=== PATIENT | male | born 1960 | race African-American/Black ===

== ENCOUNTER 2025-05-09 15:14 | Outpatient (AMB) | payer OTHER, MEDICARE, SELFPAY ==
--- NOTE | 2025-05-09 15:30 | MHC.OFFVIS ---
Intake Visit Reasons: 6 Months Allergies No Known Allergies Allergy (Verified 05/09/25 08:04) HPI Comments Details: 65 years old man with dementia probably of Alzheimer type and REM sleep behavior disorder. He is presenting with medication management needs for cognitive impairment and sleep disorder. The cognitive impairment involves issues with memory, which the patient reports have shown some improvement with the continued use of Mamantine. The sleep disorder includes symptoms of insomnia, for which Clonazepam has been prescribed as a nightly medication to facilitate improved sleep quality. Both conditions are chronic in nature, and current treatment regimens appear to support symptom management. [facility] Medical History (Updated 05/09/25 @ 15:32 by Selin Merino MD) Alzheimer dementia MCI (mild cognitive impairment) REM sleep behavior disorder Encephalopathy Review of Systems Const Details: - Neurologic: Reports improvement in memory. - Psychiatric: Reports better sleep. Physical Exam Neuro Other: Mental Status: Alert and oriented to person, place, and time. Normal attention. Normal spontaneous speech, fluency, and comprehension. Cranial Nerves: CN II: Visual kapadia full to confrontation, visual acuity intact. CN III, IV, : Pupils equal, round, reactive to light and accommodation. Extraocular movements are normal. CN V: Facial sensation is normal. CN VII: Facial movements symmetrical. CN VIII: Hearing intact to bedside conversation is normal. CN IX, X: Palate elevates symmetrically. CN XI: Shoulder shrug and head turn symmetrical. CN XII: Tongue midline without atrophy or fasciculations. Extrapyramidal: Full facial expressions and blinking. No rigidity. Movements are appropriate with no tremor or abnormality. Speech: Normal; no dysarthria or tremor. Assessment & Plan Assessment & Plan (1) Alzheimer dementia: Comment: EEG at [facility] in Jul 2024: Slowing CT brain WO at [facility] in Apr 2024: Mild atroph MRI brain WO at [facility] in Apr 2024: Mild atrophy and mild MVD CTA brain and neck at [facility] in Apr 2024: No sig stenosis. Code(s): G30.9 - Alzheimer's disease, unspecified; F02.80 - Dementia in other diseases classified elsewhere, unspecified severity, without behavioral disturbance, psychotic disturbance, mood disturbance, and anxiety Category: Medical Qualifiers: Alzheimer's disease onset: late onset Dementia severity: moderate Dementia behavioral or psychological symptom: without behavioral, psychotic, or mood disturbance or anxiety Qualified Code(s): G30.1 - Alzheimer's disease with late onset; F02.B0 - Dementia in other diseases classified elsewhere, moderate, without behavioral disturbance, psychotic disturbance, mood disturbance, and anxiety (2) REM sleep behavior disorder: Code(s): G47.52 - REM sleep behavior disorder Category: Medical Plan During this visit, I discussed the patient's ongoing cognitive impairment and sleep disorder management plans. Mamantine dosage will be increased to enhance cognitive function based on the current positive response to treatment. Doubling the 5 mg dosage will aim to maximize cognitive improvement. For sleep management, we agreed to continue Clonazepam at the current dose taken nightly, as it remains effective in mitigating insomnia symptoms. We reviewed the benefits, including the anticipated further cognitive improvement and stabilized sleep patterns, and there were no additional concerns raised regarding the treatment plan. Medications: New memantine 10 mg PO BID 180 tabs 1RF clonazepam 0.5 mg PO BEDTIME 90 tabs 1RF Coding Level of Care Code Est Pt Level 4 (55273) Diagnoses Moderate late onset Alzheimer's dementia without behavioral disturbance, psychotic disturbance, mood disturbance, or anxiety G30.1; F02.B0 Alzheimer's disease onset: late onset Dementia severity: moderate Dementia behavioral or psychological symptom: without behavioral, psychotic, or mood disturbance or anxiety REM sleep behavior disorder G47.52
--- OUTSIDE RECORDS SUMMARY | 2025-05-09 17:37 | XMS_ITS | Encounter Summary ---
Author Organization [facility], Address [address] [place] [address] Phone Care Team Providers Care [employer] Officer Name Role Phone Bonita Tinsley Primary Care Provider [phone] Encounter Details Date Type Department Care Team ([facility] st Contact Info) Description 06/08/2024 Documentation Only [facility], [address] [place] [address] Sheri Shafer [address] [place] [address] Social History Tobacco Use Types Packs/Day Years Used Date Smoking Tobacco: Never Alcohol Use Standard Drinks/Week Comments No 0 (1 standard drink = 0.6 oz pur e alcohol) Sex and Gender Information Value Date Recorded Sex Assigned at Not on file Legal Sex Male 4:37 PM EST Gender Identity Not on file Sexual Orientation Not on file documented as of this encounter Plan of Treatment Not on file documented as of this encounter Visit Diagnoses Not on filedocumented in this encounter Care Teams [employer] Relationship Specialty Start Date End Date Bonita Tinsley PA [address] [facility] [address] [place], [place] PCP - General Physician Tra[employer] Rod Assembler 11/15/21 documented as of this encounter
--- OUTSIDE RECORDS SUMMARY | 2025-05-09 17:37 | XMS_ITS | Encounter Summary ---
Author Organization [facility], Address [address] [place] [address] Phone Care Team Providers Care Chip Frier Name Role Phone Bonita Tinsley Primary Care Provider [phone] Encounter Details Date Type Department Care Team (Late st Contact Info) Description 03/02/2024 Office Communication [facility], - Viridiana Pereira [address] [facility] [address] [place] [phone] Heri Kaiser MD [address] [place] [address] [facility] [place] [phone] Social History Tobacco Use Types Packs/Day Years [...] on filedocumented in this encounter Care Teams Chip Frier Relationship Specialty Start Date End Date Bonita Tinsley PA [address] PCP - General Physician Sales Estimator 11/15/21 documented as of this encounter
--- OUTSIDE RECORDS SUMMARY | 2025-05-09 17:37 | XMS_ITS | Data Portability ---
Author Organization [facility], Main Office Address [address] [facility] [address] [place] [address] Care Team Providers Care Pot Pusher Name Role Phone JAY DE LA CRUZ Primary Care Provider OBDULIO REYNA Referring Provider [facility] Lead Developer [phone] CHANDRA MACIEL Lead Developer XAVIER ARAMBULA Mental Measurements Teacher CHANDRA FORDE Lead Developer NORMA POLANCO Curbing Stonecutter Assessment No assessment recorded. Plan of Treatment Reminders Order Date Submit Date Provider Last Modified By Organization Details Last Modified Time Details Appointments BILLING ONLY 2024 09:15A M MECHELLE SCHEDULE Not available Not available Not available Lab hemoglobi n A1C, fingersti ck 2024 025 ANDERSON In-Office Order, Internal Use Only DO Not Attach Compendium DO Not Attach Compendium, Do Not Delete/merge, [id number] 01/04/2025 10:43:25 CMP, serum or plasma 2024 025 ANDERSON [facility] (Centralized Electronic Ordering - All Locations), Patient Can Go To The Location Of Their Choice, [id number] 01/04/2025 11:11:55 lipid panel, serum 2024 025 ANDERSON [facility] (Centralized Electronic Ordering - All Locations), Patient Can Go To The Location Of Their Choice, [id number] 01/04/2025 11:12:38 Referral None recorded. Procedures None recorded. Surgeries None recorded. Imaging None recorded. Medication Orders None recorded. Patient TargetsNo targets recorded. Patient Instructions Encounter Date Encounter Id Patient Instructions Last Modified By Organization Details Last Modified Time 01/04/2025 [id number] diarrhea: care instructions [email or web address] Not available 01/04/2025 11:11:49 medicines to avoid with kidney disease: care instructions Not available 01/04/2025 11:11:49 high cholesterol: care instructions Not available 01/04/2025 11:12:36 Medications (OTC, herbal therapies, supplements) reviewed and reconciled with patient and or caregiver, including potential side effects, drug interactions, instructions, and the consequences of not taking medication. Reviewed potential barriers to medication adherence, such as side effects from medication or cost of medication. [email or web address] Not available 01/04/2025 10:27:07 Reason for Referral None Reported. Results Created Date Observation Date Name Description Value Unit Range Abnormal Flag Note LastModifiedBy Organization Detail LastModifiedTime 01/05/20 25 01/04/2025 hemog lobin A1C, finge rstic k A1C 5.9 % 4-6 normal Not Available In-Office Order Internal Use Only DO Not Attach Compendium DO Not Attach Compendium, Do Not Delete/merge, [id number] 01/04/2025 10:28:51 Result Notes None recorded. Problems Name Problem SNOMED Code Status Onset Date Resolution Date Notes Provider Name and Address Organization Details Recorded Time Hyperten sive disorder [id number] Completed 01/03/2020 Cara Tinsley PA-C [address] [address], [place], [address] , [facility] 0 11:07:59 Type 2 diabetes mellitus 62711925 Completed 01/03/[address] Cara Tinsley PA-C [address] [facility] [address], [place], [address] , [facility] 0 11:08:31 Administ ration of diphther ia and tetanus vaccine Completed 200702/22/2014 RESOLVED DATE: 03/26/20 08; RECORDED 03/26/20 08 10:36AM BY MECHELLE POLANCO, HISTORIC AL SUMMARY Jacqui garcias, [facility] 6 10:44:46 Administ ration of diphther ia and tetanus vaccine Completed 200703/14/2014 RESOLVED DATE: 03/26/20 08; RECORDED 03/26/20 08 10:36AM BY MECHELLE POLANCO, HISTORIC AL SUMMARY Jacqui garcias, [facility] 6 10:44:46 Influenz a vaccine needed [id number] 06 Completed 201002/22/2014 RECORDED 05/07/20 11 4:43PM BY GISELE MENA I, OFFICE VISIT Jacqui garcias [facility] 6 10:44:46 Influenz a vaccine needed 84166137230 06 Completed 201003/14/2014 RECORDED 05/07/20 11 4:43PM BY GISELE MENA I, OFFICE VISIT Jacqui garcias, [facility] 6 10:44:46 Renal function tests outside referenc e range 430449695 Completed 201302/22/2014 IMPRESSI ON: RECENT LABS REVEAL ELEVATED BUN AND CREATINI NE. PT DENIES TAKING ANY NSAIDS. WILL REPEAT LABS AND F/U VIA PHONE WITH RESULTS WHEN AVAIL. I HAVE RECC HE SCHED A ROUTINE APPT WITH PCP IN THE NEXT 4-6 WKS, HOWEVER, HE IS LONG OVERDUE AND WE NEED TO WORK ON MAINTENA NCE.; RECORDED 08/18/19 14 2:14PM BY GISELE MENA I, ANNOTATI ON/ADDEN DUM Jacqui garcias, [facility] 6 10:44:46 Renal function tests outside referenc e range 265921643 Completed 201303/14/2014 IMPRESSI ON: RECENT LABS REVEAL ELEVATED BUN AND CREATINI NE. PT DENIES TAKING ANY NSAIDS. WILL REPEAT LABS AND F/U VIA PHONE WITH RESULTS WHEN AVAIL. I HAVE RECC HE SCHED A ROUTINE APPT WITH PCP IN THE NEXT 4-6 WKS, HOWEVER, HE IS LONG OVERDUE AND WE NEED TO WORK ON MAINTENA NCE.; RECORDED 08/18/19 14 2:14PM BY GISELE MENA I, ANNOTATI ON/ADDEN DUM Jacqui garcias [facility] 6 10:44:46 Adult health examinat ion Completed 201306/24/2015 RECORDED 10/29/19 14 2:49PM BY GISELE MENA I, OFFICE VISIT Jacqui garcias [facility] 6 10:44:46 Laborato ry procedur e performe d [id number] Completed 201302/22/2014 RECORDED 10/29/19 14 8:57AM BY GISELE MENA I, ANNOTATI ON/ADDEN DUM Jacqui garcias, [facility] 6 10:44:46 Type 2 diabetes mellitus without complica tion 453846342 Completed 201301/17/2017 MIRELAI ON: WE REVIEWED LIFESTYL E CHANGES HE CAN MAKE TO GET HIS SUGARS UNDER BETTER CONTROL. HE HAS BEEN C/W THE METFORMI N AND GLYBURID E AND TOLERATI NG BOTH WELL.; RECORDED 12/01/19 14 7:55AM BY GISELE MENA I, KELSEY TIREJI Tinsley PA-C [address] [address], [place], [address] , [facility] 7 13:17:58 Adult health examinat ion Completed 201303/14/2014 RECORDED 12/30/19 14 10:14AM BY SHARRI NUÑEZ MA, ANNOTATI ON/ADDEN DUM Jacqui garcias [facility] 6 10:44:46 Hyperlip idemia 49406994 Active 2013 Not Available [facility] 3 19:00:12 Patient status finding [id number] Completed 201306/24/2015 RECORDED 01/26/20 14 3:02PM BY ABHILASH SHEPPARD, OFFICE VISIT Jacqui garcias, [facility] 6 10:44:46 Chronic kidney disease stage 2 398221663 Completed 201306/21/2020 Jay De La Cruz MD [address] [facility] [address], [place], [address] , [facility] 4 09:13:21 Renal disorder due to type 2 diabetes mellitus 528324416 Active 2013 Not Available [facility] 3 19:00:12 Keratoco nus 03193336 Active 2013 Not Available [facility] 3 19:00:12 Laborato ry procedur e performe d 277622887 Completed 201306/24/2015 RECORDED 01/26/20 14 3:02PM BY ABHILASH SHEPPARD, OFFICE VISIT Jacqui garcias, [facility] 6 10:44:46 Pre-surg lakia evaluati on Completed 201303/14/2014 RECORDED 01/26/20 14 3:02PM BY ABHILASH SHEPPARD, ANNOTATI ON/ADDEN DUM Jacqui garcias, [facility] 6 10:44:46 Conducti on disorder of the heart 17113930 Active 2013 Not Available [facility] 3 19:00:12 Chronic kidney disease stage 2 086601450 Completed 201306/09/2024 Removal Reason: worsenin g kidney disease Jay De La Cruz MD [address] [facility] [address], [place], [address] , [facility] 4 09:13:21 Tubular adenomat ous polyp of colon 354938285 Active 2015 Not Available [facility] 3 19:00:12 Microalb uminuria 471685310 Active 2016 Not Available [facility] 3 19:00:12 Hemorrha ge of left vitreous body 40672374665 9105 Active 2018 Not Available [facility] 3 19:00:12 Retinopa thy due to type 2 diabetes mellitus 880007499 Active 2018 Not Available [facility] 3 19:00:12 Neovascu lar glaucoma of left eye 19581482828 938580 Active 2018 Not Available [facility] 3 19:00:12 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 mellitus 05376040595 101 Active 2018 Not Available [facility] 3 19:00:12 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 836359500 Active 2018 Justine Mcdonough MA null, [facility] 4 10:21:46 Noncompl iance with medicati on regimen 867033243 Active 2018 Not Available [facility] 3 19:00:12 Anemia of chronic disease 074313308 Active 2018 Not Available [facility] 3 19:00:12 Acute kidney injury 30183357 Completed 201910/01/2023 Gonzalo Blanchard MD [address], [place], [address] , [facility] 4 08:18:13 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 Not Available [facility] 3 19:00:12 Renal osteodys trophy 74744008 Completed 202110/02/2021 CHANCE Preston, [facility] 4 10:02:00 Hyperuri cemia 73763107 Active 2021 Not Available [facility] 3 19:00:12 Primary erectile dysfunct ion 639943270 Active 2022 Cara Tinsley PA-C [address], [place], [address] , [facility] 3 16:02:31 Mild memory disturba nce 341304849 Active 2023 Gonzalo Blanchard MD [address] [facility] [address], [place], [address] , [facility] 4 12:16:20 Hyperpar athyroid ism 71897518 Active 2023 Secondar y to CKD. He has a normal calcium. Jay De La Cruz MD [address] [facility] [address], [place], [address] , [facility] 4 17:15:17 Small vessel cerebrov ascular disease 269658362 Active 2023 Gonzalo Blanchard MD [address] [facility] [address], [place], [address] , [facility] 4 22:57:09 Chronic kidney disease stage 4 156519312 Active 2023 Followed by renal. Jodie Thrasher [facility], [facility] 4 13:50:22 Sleep disorder 23584580 Active 2023 Jay De La Cruz MD [address] [facility] [address], [place], [address] , [facility] 4 10:49:06 Transien t cerebral ischemia 254906660 Active 2023 Jay De La Cruz MD [address] [facility] [address], [place], [address] , [facility] 4 11:46:49 Mild dementia 78600399173 4108 Active 2023 Jay De La Cruz MD [address] [facility] [address], [place], [address] , [facility] 4 17:38:06 Notes:Some problems listed i n Documents: #[id number], #[id number], #[id number], #[id number] could not be added to this patient's chart. Please review these documents and add these problems to the patient's chart manually as needed. Problem Notes None recorded. Procedures Surgical History Date Name Laterality Status Provider Name and Address Organization Details Recorded Time 01/04 Diabetic Foot Exam (Monofilament) completed Cara FLANAGAN-C [address] [facility] [address], [place], [address] , [facility] 5 11:05:09 10/06 Diabetic Foot Exam (Monofilament) completed Allen Marie [facility] 5 16:15:53 12/31 Diabetic Foot Exam (Monofilament) completed Jay De La Cruz MD [address], [place], [address] , [facility] 4 14:48:37 05/06 Diabetic Foot Exam (Monofilament) completed Cara Tinsley PA-C [address], [place], [address] , [facility] 3 20:25:20 08/31 Diabetic Foot Exam (Monofilament) completed Eugenie Polanco MA [facility] 2 09:56:55 06/01 Diabetic Foot Exam (Monofilament) completed Eugenie Polanco MA [facility] 1 10:27:03 05/15 vitrectomy completed Jacqui Vera [facility] 1 09:52:10 03/06 Colonoscopy completed Jacqui Vera [facility] 2 15:51:26 03/06 esophagogastroduodenoscopy completed Nick Vera [facility] 1 16:06:26 08/04 Cataract Surgery completed Justine Mcdonough MA [facility] 4 10:22:32 07/21 Diabetic Foot Exam (Monofilament) completed Alessia Selvin [facility] 9 13:41:38 10/19 Diabetic Foot Exam (Monofilament) completed Lima Herrera MA [facility] 9 15:54:11 04/27 Diabetic Foot Exam (Monofilament) completed Gisele Sagastume [facility] 8 16:03:43 Eye Surgery [facility] [address] [facility] [address], [place], [address] , [facility] 5 13:40:21 Imaging Results None recorded. Procedure Notes None recorded. Medical Equipment None Reported. Allergies No known drug allergies Medications Name Sig Start Date Stop Date Status Note LastModified by Organization Details LastModified Time furosemid e 20 mg tabs 1 po daily active Not Available Not Available No t Available amoxicill in/clavul anate potassium 875-125 mg tabs active Not Available Not Available Not Available prednisol one acetate 1 % susp active Not Available Not Available Not Available glipizide 10 mg tabs active Not Available Not Available Not Available metformin hcl 1000 mg tabs active Not Available Not Available Not Available ofloxacin 0.3 % soln active Not Available Not Available Not Available freestyle jose cruz lite 10/09 completed Not Available Not Available Not Available lisinopri l 10 mg tabs active Not Available Not Available Not Available latanopro st 0.005 % eye drops ADMINIST ER 1 DROP INTO THE LEFT EYE AT BEDTIME. active Not Available Not Available No t Available pioglitaz one 15 mg tablet TAKE ONE TABLET BY MOUTH EVERY DAY 07/24 completed Not Available Not Available Not Available atorvasta tin 40 mg tablet TAKE ONE TABLET BY MOUTH EVERY DAY active Not Available Not Available No t Available doxycycli ne hyclate 100 mg capsule TAKE ONE CAPSULE BY MOUTH THREE TIMES A DAY FOR 14 DAYS 06/01 completed Not Available Not Available Not Available Ciloxan 0.3 % eye ointment 08/23 completed Not Available Not Available Not Available sildenafi l 50 mg tablet TAKE 1 TABLET BY MOUTH NEEDED FOR 10 DAYS 06/28 completed Not Available Not Available Not Available cetirizin e 10 mg tablet Take 1 tablet every day by oral route for 30 days, for allergie s. 02/27 completed Not Available Not Available Not Available atorvasta tin 10 mg tablet TAKE 1 TABLET BY MOUTH EVERY DAY 04/20 completed Not Available Not Available Not Available lisinopri l 20 mg-hydroc hlorothia zide 12.5 mg tablet 05/06 completed Not Available Not Available Not Available ibuprofen 800 mg tablet TAKE NEEDED. 06/14 completed Not Available Not Available Not Available acetazola mide ER 500 mg capsule,e xtended release 500 mg by oral route. 08/06 completed Not Available Not Available Not Available ofloxacin 0.3 % eye drops PLACE 1 DROP IN THE LEFT EYE FOUR TIMES A DAY FOR 4 DAYS THEN STOP 06/01 completed Not Available Not Available Not Available glipizide ER 10 mg tablet, extended release 24 hr TWO TIMES DAILY 2013 active RECORDED 08/18/19 14 3:05PM BY JAY ROJAS MD, OFFICE VISIT; Not Available Not Available Not Available FreeStyle Lancets 28 gauge TEST 4 TIMES A DAY active Not Available Not Available No t Available lisinopri l 20 mg tablet TAKE 1 TABLET BY MOUTH EVERY DAY 2024 active Not Available Not Available Not Avai lable ondansetr on HCl 4 mg tablet Take 1 tablet every 8 hours by oral route for 3 days. 01/02 completed Not Available Not Available Not Available glipizide 10 mg tablet TAKE ONE TABLET BY MOUTH ONCE PER DAY 11/24 completed Not Available Not Available Not Available clonazepa m 0.5 mg tablet TAKE 1 TABLET BY MOUTH EVERY DAY AT BEDTIME FOR 90 DAYS active Not Available Not Available No t Available metronida zole 250 mg tablet TAKE ONE-HALF OF A TABLET (1/2) BY MOUTH 3 TIMES A DAY FOR 14 DAYS. 06/01 completed Not Available Not Available Not Available pioglitaz one 45 mg tablet TAKE ONE TABLET BY MOUTH EVERY DAY 06/01 completed Not Available Not Available Not Available clopidogr el 75 mg tablet TAKE 1 TABLET BY MOUTH EVERY DAY 2024 active Not Available Not Available Not Avai lable amlodipin e 5 mg tablet Take 1 tablet every day by oral route as directed for 90 days. 07/10 completed Not Available Not Available Not Available ciproflox acin 500 mg tablet Take 1 tablet twice a day by oral route for 7 days. 01/02 completed Not Available Not Available Not Available amoxicill in 500 mg tablet TAKE 1 TABLET BY MOUTH 3 TIMES A DAY UNTIL FINISHED 04/20 completed Not Available Not Available Not Available prednisol one acetate 1 % eye drops,guera pension INSTILL 1 DROP INTO RIGHT EYE FOUR TIMES A DAY DIRECTED IN THE OPERATIV E EYE. (SHAKE BOTTLE BEFORE EACH DOSE) 08/29 completed Not Available Not Available Not Available amlodipin e 10 mg tablet 05/10 completed Not Available Not Available Not Available timolol 0.5 % eye drops Instill 1 [drp] by ophthalm ic route. 06/01 completed Not Available Not Available Not Available pantopraz ole 40 mg tablet,de layed release Take 1 tablet every day by oral route for 30 days. 08/23 completed Not Available Not Available Not Available Neel 128 5 % eye drops PLACE 1 DROP INTO THE LEFT EYE DIRECTED 3 TIMES A DAY FOR 10 DAYS. 08/23 completed Not Available Not Available Not Available calcitrio l 0.5 mcg capsule TAKE 1 CAPSULE (0.5 MCG TOTAL) BY MOUTH 1 (ONE) TIME EACH DAY active Not Available Not Available No t Available metformin 1,000 mg tablet 1 po BID with food. 05/21 completed Not Available Not Available Not Available lisinopri l 10 mg tablet TAKE ONE TABLET(S ) DAILY BY MOUTH 07/10 completed Not Available Not Available Not Available brimonidi ne 0.2 % eye drops INSTILL 1 DROP IN THE LEFT EYE TWO TIMES A DAY active Not Available Not Available No t Available One Touch Basic System kit DAILY 08/02 completed RECORDED 07/23/20 13 9:19AM BY JAY ROJAS MD, MEDICATI ON AUTO-JORGE CTIVATIO N; Not Available Not Available Not Available gabapenti n 300 mg capsule 07/26 completed Not Available Not Available Not Available lisinopri l 20 mg-hydroc hlorothia zide 25 mg tablet TAKE 1 TABLET BY MOUTH EVERY DAY 04/20 completed Not Available Not Available Not Available dorzolami de 22.3 mg-timolo l 6.8 mg/mL eye drops INSTILL 1 DROP INTO LEFT EYE BY OPHTHALM IC ROUTE 2 TIMES PER DAY active Not Available Not Available No t Available lisinopri l 5 mg tablet TAKE 1 TABLET BY MOUTH DAILY 05/21 completed Not Available Not Available Not Available furosemid e 20 mg tablet DAILY active RECORDED 01/26/20 14 3:02PM BY ABHILASH SHEPPARD, OFFICE VISIT; Not Available Not Available Not Available timolol maleate 0.5 % eye drops PLACE 1 DROP INTO THE LEFT EYE DAILY 12/31 completed Not Available Not Available Not Available doxycycli ne hyclate 100 mg tablet 10/06 completed Not Available Not Available Not Available dorzolami de 2 % eye drops Instill 1 [drp] by ophthalm ic route. 08/23 completed Not Available Not Available Not Available insulin lispro (U-100) 100 unit/mL subcutane ous pen Inject 8 units 3 times a day by subcutan eous route for 30 days. 01/04 completed Not Available Not Available Not Available escitalop lucy 10 mg tablet Take 1 tablet by mouth every day for depressi on active Not Available Not Available No t Available moxifloxa geoff 0.5 % eye drops Instill 1 drop 4 times a day by ophthalm ic route for 8 days. 08/23 completed Not Available Not Available Not Available memantine 5 mg tablet TAKE 1 TABLET BY MOUTH TWICE A DAY active Not Available Not Available No t Available metformin ER 1,000 mg tablet,ex tended release 24hr (osmotic) TAKE ONE TABLET BY MOUTH EVERY DAY 01/31 completed Not Available Not Available Not Available NuLYTELY with Flavor Packs 420 gram oral solution Take by oral route. 2015 active Not Available Not Available Not Avai lable Tylenol Extra Strength 06/14 completed Not Available Not Available Not Available Fish Oil DAILY 2010 active RECORDED 10/31/19 11 10:33AM BY ADITI MARINELLIATI ON/ADDEN DUM; Not Available Not Available Not Available Aspirin EC DAILY 08/18 completed RECORDED 08/18/19 14 2:39PM BY GISELE MENA I, ANNOTATI ON/ADDEN DUM; Not Available Not Available Not Available FreeStyle Lancets FOUR TIMES DAILY 01/17 completed RECORDED 10/29/19 14 2:40PM BY GISELE MENA I, OFFICE VISIT;DX : DIABETES II(250.0 0) Not Available Not Available Not Available BD Ultra-Fin e Short Pen Needle 31 gauge x 5/16 USE DIRECTED DAILY FOR SUBCUTAN EOUS INJECTIO NS active Not Available Not Available No t Available OneTouch Ultra2 Meter NEEDED 01/17 completed Not Available Not Available Not Available Travatan Z 0.004 % eye drops Instill 1 [drp] by ophthalm ic route. 06/01 completed Not Available Not Available Not Available Januvia 50 mg tablet Take every 24 hours by oral route. 01/02 completed Not Available Not Available Not Available FreeStyle Lite Strips Take 1 strip 3 times a day by miscell. route for 90 days. 10/09 completed Not Available Not Available Not Available FreeStyle Lite Strips FOUR TIMES DAILY, NEEDED 01/17 completed RECORDED 09/01/19 14 2:51PM BY JAY ROJAS MD, REFILL REQUEST; DX: DIABETES II (250.0) Not Available Not Available Not Available Lantus Solostar U-100 Insulin 100 unit/mL (3 mL) subcutane ous pen Inject 15 units every day by subcutan eous route for 14 days. 01/31 completed Not Available Not Available Not Available Combigan 0.2 %-0.5 % eye drops Instill 1 [drp] by ophthalm ic route. 05/20 completed Not Available Not Available Not Available metformin ER 1,000 mg 24 hr tablet,ex tended release (gastric reten.) Take 1 tablet every day by oral route for 90 days. 2015 active Not Available Not Available Not Avai lable GaviLyte- G 236 gram-22.7 4 gram-6.74 gram-5.86 gram oral solution DRINK DIRECTED 06/01 completed Not Available Not Available Not Available OneTouch Delica Lancets 33 gauge Take 1 each 3 times a day by miscell. route as directed for 30 days. 05/06 completed Not Available Not Available Not Available Unifine Pentips Plus 32 gauge x 5/32 needle Take by miscell. route for 30 days. 10/19 completed Not Available Not Available Not Available Jardiance 10 mg tablet TAKE 1 TABLET BY MOUTH 1 (ONE) TIME EACH DAY WITH BREAKFAS T active Not Available Not Available No t Available Trulicity 1.5 mg/0.5 mL subcutane ous pen injector 05/06 completed Not Available Not Available Not Available Trulicity 0.75 mg/0.5 mL subcutane ous pen injector 06/01 completed Not Available Not Available Not Available Anjali Boo U-300 Insulin 300 unit/mL (1.5 mL) subcutane ous pen INJECT 20 UNITS EVERY DAY BY SUBCUTAN EOUS ROUTE FOR 90 DAYS. active 11/03/24 inc to 25 ux Not Available Not Available Not Available Xultophy 100/3.6 100 unit-3.6 mg/mL (3 mL) subcutane ous insulin pen Inject 16 units every day by subcutan eous route for 30 days. 10/09 completed Not Available Not Available Not Available Readi-Cat 2 2 % (w/v) oral suspensio n USE ACCORDIN G TO INSTRUCT IONS PROVIDED BY DOCTOR'S OFFICE. 08/23 completed Not Available Not Available Not Available Fiasp FlexTouch U-100 Insulin 100 unit/mL (3 mL) subcutane ous pen INJECT 8 UNITS 3 TIMES A DAY BY SUBCUTAN EOUS ROUTE FOR 90 DAYS. active Not Available Not Available No t Available FreeStyle Maeve 14 Day Hartly Take by miscell. route for 14 days. 10/19 completed Not Available Not Available Not Available FreeStyle Maeve 14 Day Sensor kit USE 1 SENSOR EVERY 14 DAYS 05/06 completed Not Available Not Available Not Available Trulicity 3 mg/0.5 mL subcutane ous pen injector INJECT 0.5ML SUBCUTAN EOUSLY ONCE A WEEK 08/09 completed Not Available Not Available Not Available Mounjaro 5 mg/0.5 mL subcutane ous pen injector INJECT 5 MG SUBCUTAN EOUSLY WEEKLY 2024 active Not Available Not Available Not Avai lable Mounjaro 2.5 mg/0.5 mL subcutane ous pen injector Inject 2.5 mg every week by subcutan eous route for 30 days. 10/04 completed Not Available Not Available Not Available Dexcom G7 Sensor device CHANGE EVERY 10 DAYS active Not Available Not Available No t Available Vitals Date Recorded Body height Body mass index (BMI) Body weight Heart rate Oxygen saturation Oxygen saturation in Arterial blood by Pulse oximetry Body temperature Systolic And Diastolic Provider Name and Address Organization Details Last Updated DateTime 5 172.72 cm 25.2 kg/m2 71782.3 3 g 69 /min 96 % 96 % 97.4 [degF] 103/63 mm[Hg] Zoe BeasleyAbena martinez MA [facility] 5 10:40:38 Social History Question Answer Notes LastModified by Organizat ion Details LastModified Time Do You Have An Advance Directive? No Information not available 11/14/2021 Is Blood Transfusion Acceptable In An Emergency? Yes [id number] Information not available 06/06/2020 What Is Your Level Of Caffeine Consumption? None Information not available 09/27/2023 How Much Tobacco Do You Chew? None [id number] Information not available 06/06/2020 What Type Of Diet Are You Following? REGULAR [id number] Information not available 06/06/2020 Which Illicit Or Recreational Drugs Have You Used? None [id number] Information not available 06/06/2020 When Did You Quit Smoking? 14+yearssin [email or web address] ette Information not available 09/27/2023 Live Alone Or With Others? With Others (Niyah) Information not available 11/14/2021 Do You Take Precautions To Prevent Distracted Driving? Yes Information not available 06/10/2015 How Often Do You Need To Have Someone Help You When You Read Instructions, Pamphlets, Or Other Written Material From Your Doctor Or Pharmacy? Never Information not available 06/10/2015 Have You Or Anyone In Your Household Had Any Of The Following Symptoms In The Last 14 Days: Sore Throat, Cough, Chills, Body Aches For Unknown Reasons, Shortness Of Breath For Unknown Reasons, Loss Of Smell, Loss Of Taste, Fever At Or Greater Than 100 Degrees Fahrenheit? No Information not available 08/23/2020 Are You Or Anyone In Your Household A Health Care Provider Or Emergency Responder? No [email or web address] Information not available 08/23/2020 To The Best Of Your Knowledge Have You Been In Close Proximity To Any Individual Who Tested Positive For COVID-19? No [email or web address] Information not available 08/23/2020 Have You Recently Traveled To A COVID-19 High Risk Area Or Gathering In The Last 10 Days? No [email or web address] Information not available 08/23/2020 What Was The Date Of Your Most Recent Tobacco Screening? 01/01/2024 [email or web address] Information not available 01/01/2024 How Many Children Do You Have? 4 [id number] Information not available 06/06/2020 Do You Use Protection During Sex? No [id number] Information not available 06/06/2020 Do You Use Your Seat Belt Or Car Seat Routinely? Yes Information not available 09/27/2023 Seat Belts Used Routinely Yes Information not available 11/14/2021 Are You Sexually Active? No Information not available 09/27/2023 Smoke Alarm In Home Yes Information not available 11/14/2021 Do You Have Smoke And Carbon Monoxide Detectors In Your Home? Yes Information not available 09/27/2023 At What Age Did You Start Smoking Tobacco? 1 [id number] Information not available 06/06/2020 Are You Passively Exposed To Smoke? No Information no t available 06/10/2015 How Much Tobacco Do You Smoke? No [id number] Information not available 06/06/2020 Do You Use Sunscreen Routinely? No [id number] Information not available 06/06/2020 How Many Years Have You Smoked Tobacco? 0 [id number] Information not available 06/06/2020 Sex: Unknown Functional Status Question Answer Note LastModified by Organizat ion Details LastModified Time Do you use any illicit or recreational drugs? No Information not available 11/14/2021 Do you or have you ever used any other forms of tobacco or nicotine? No Information not available 11/14/2021 What is your level of alcohol consumption? None [id number] Information not available 06/06/2020 Do you or have you ever used smokeless tobacco? Never used smokeless tobacco Information not available 09/27/2023 Are you currently employed? No Information not available 08/29/2021 Are you able to walk independently without assistance or assistive devices? [email or web address] Information not available 11/14/2021 Are you able to care for yourself independently? Yes [id number] Information not available 06/06/2020 What is your occupation? Other [employer] Information not available 01/07/2025 What is your exercise level? Moderate walking daily Information not available 08/29/2021 Mental Status None recorded. Family History Relationship Description Onset Age of this Age Resolved Age Notes LastModified by Organization Details LastModified Time Mother of parent 38 IUD relate d [email or web address] Not available 10/22/2018 15:03:06 Father of parent 66 compli cation s from diabet es [email or web address] Not available 10/22/2018 15:03:46 Brother Overdose 39 [email or web address] Not avail able 07/26/2024 11:32:46 Notes:1 brother of over dose Medical History Condition Response Diabetes Y Vision or Eye Problems Y Hypertension Y Kidney Disease Y Acne Y Immunizations Vaccine Type Date Status Note Provider Name and Address Organization Details Recorded Time Td (adult) 003 completed Not Available [facility] 11/18/2022 19:00:12 Td (adult), 2 Lf tetanus toxoid, preservative free, adsorbed 003 completed Not Available [facility] 05/06/2023 15:02:53 pneumococcal polysaccharide PPV23 015 completed Jodie Wanzo, MA null, [facility] 04/20/2024 13:50:31 COVID-19, mRNA, LNP-S, PF, 100 mcg/0.5mL dose or 50 mcg/0.25mL dose 021 completed MECHELLE Isaac [facility] 04/20/2024 13:50:31 COVID-19, mRNA, LNP-S, PF, 100 mcg/0.5mL dose or 50 mcg/0.25mL dose 021 completed MECHELLE Isaac [facility] 04/20/2024 13:50:31 typhoid, ViCPs 017 completed CHANCE Preston [facility] 01/01/2024 10:02:48 Hep A, unspecified formulation 008 completed Not Available [facility] 11/18/2022 19:00:12 Tdap 008 completed Not Available [facility] 11/18/2022 19:00:12 MMR 008 completed MECHELLE Isaac [facility] 04/20/2024 13:50:30 Hep A, adult 017 completed MECHELLE Isaac [facility] 04/20/2024 13:50:31 influenza, unspecified formulation 009 completed Not Available [facility] 11/18/2022 19:00:12 DT (pediatric) 998 completed Not Available [facility] 11/18/2022 19:00:12 influenza, unspecified formulation 005 completed [facility] 11/18/2022 19:00:12 influenza, unspecified formulation 007 completed Not Available [facility] 11/18/2022 19:00:12 influenza, unspecified formulation 011 completed Not Available [facility] 11/18/2022 19:00:12 COVID-19, mRNA, LNP-S, PF, 100 mcg/0.5mL dose or 50 mcg/0.25mL dose 021 completed Pily Caporale, ETHICS OFFICER null, [facility] 01/01/2024 10:02:47 typhoid, unspecified formulation 017 completed MECHELLE Isaac, [facility] 04/20/2024 13:50:31 Tdap 021 cancelled patient objection MECHELLE Lombardo, [facility] 08/23/2020 12:02:56 Influenza, split virus, quadrivalent, PF 021 cancelled patient objection MECHELLE Lombardo, [facility] 08/23/2020 12:02:56 Pneumococcal conjugate PCV 13 021 cancelled patient objection Ruben Haddad MD [address], [address], [facility] 08/23/2020 13:23:18 Tdap 022 completed MECHELLE Oliver, [facility] 08/29/2021 13:45:52 Past Encounters Encounter ID Performer Location Encounter Start Date Encounter Closed Date Diagnosis/Indication Diagnosis SNOMED-CT Code Diagnosis ICD10 Code Diagnosis IMO Codes Diagnosis Note [id number] auto[facility]Comm erce [address] [facility] [place] [address] 02/23/2007 00:00:00 [id number] autoEComm erce [address] [facility] [facility] [place] [address] 04/25/2007 00:00:00 [id number] [facility] [address] [facility] [address] [address] [place] [address] 07/18/2007 00:00:00 [id number] autoEComm erce [address] [facility] [facility] [place] [address] 03/26/2008 00:00:00 [id number] autoEComm erce [address] [facility] [facility] [place] [address] 10/19/2008 00:00:00 [id number] autoEComm erce [address] [facility] [place] [address] 10/20/2008 00:00:00 [id number] autoEComm erce [address] [place] [place] [address] 10/01/2010 00:00:00 [id number] autoEComm erce [address] [place] [place] [address] 10/16/2010 00:00:00 [id number] autoEComm erce [address] [place] [place] [address] 05/07/2011 00:00:00 [id number] autoEComm erce [address] [facility] [place] [address] 08/18/2013 00:00:00 [id number] autoEComm erce [address] [facility] [place] [address] 10/28/2013 00:00:00 [id number] autoEComm erce [address] [facility] [place] [address] 12/29/2013 00:00:00 [id number] autoEComm erce [address] [facility] [place] [address] 01/25/2014 00:00:00 [id number] Gino Limon, [facility] Main Office [address] [facility] [address] [place] [address] 05/11/2015 12:47:59 05/11/2015 13:39:46 Pre-surgery evaluation 543185739 Z01.818 Repeat blood work shows improvemen t of A1C to 9.9, EKG Sinus rhythm, he is low cardiac risk for cataract surgery, should proceed as planned. Type 2 polo betes mellitus without complication 762739141 E11.8 Last A1C 11.4 on 04/06/2015, patient states he has been walking and eating well as well as checking home finger sticks with normal ranges. His DM is poorly controlled , will repeat blood work today but he is aware that he may not be cleared for surgery if his A1C is still very high. 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 I again attempted to discuss potential penitentiary consequenc es of uncontroll ed DM. I also explained to patient that he needs to follow-up for DM and if he does not keep his follow-up appointmen t he will be terminated from the practice. An appointmen t was made for patient on a Friday as this is most convenient for him 06/10/15. Chronic ki dney disease stage 2 862041454 N18.2 Last creatinine 1.7, he is seeing anish SILVERIO faxing over the most recent note for review. Essential hypertension 46947591 I10 Patient states he is taking meds as prescribed . Continue as directed. [id number] Jay De La Cruz MD Main Office [address] [address] [place] [address] 06/10/2015 09:24:49 06/10/2015 10:10:58 Essential hypertension 80851313 I10 we will increase his lisinopril from 5 to 10 mg and he will follow his BP. 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 Renal diso rder due to type 2 diabetes mellitus 653920916 E11.29 his A1C here in the office is 8.2. There is room improvemen t but it is better than expected. He will try to make some changes so we will not make any changes in his meds this time. Chronic ki dney disease stage 2 726349253 N18.2 Administra tion of pneumococcal vaccine 74849224 Z23 Hyperlipidemia 77206627 E78.5 start a statin. [id number] Jay De La Cruz MD Main Office [address] [facility] [address] [facility] [place] [address] 10/25/2015 15:08:08 10/25/2015 16:39:05 Renal disorder due to type 2 diabetes mellitus 076949123 E11.29 his A1C here in the office is 8.0. This has not improved much since his last visit at 8.2 but he feels that it is because of dietary indiscreti ons. We will not make any changes in his meds. He will try to watch his diet better. Chronic ki dney disease stage 2 221820332 N18.2 followed by renal. Hyperlipidemia 36164220 E78.5 start a statin. Essential hypertension 76856551 I10 We increased his meds and his BP is now doing well. Screening for malignant neoplasm of colon 412736100 Z12.11 [id number] Jay De La Cruz MD Main Office [address] [place] [address] 01/09/2016 14:55:58 01/09/2016 15:41:48 Renal disorder due to type 2 diabetes mellitus 407208325 E11.29 His A1C is above 10. He feels that he can do better with diet and rememberin g his meds so he doesn't want to make any changes at this time. Administra tion of diphtheria, pertussis, and tetanus vaccine 847067129 Z23 [id number] Jay De La Cruz MD Main Office [address] [place] [address] 03/06/2016 13:36:54 03/06/2016 14:38:04 Renal disorder due to type 2 diabetes mellitus 871440739 E11.29 A1C remains high. He has problems with dietary compliance . We will restart his metformin at once a day and he also agreed to start a low dose of actos. He is very concerned about his renal status and wants to work at getting his diabetes under better control. He will also make an appointmen t with Cara to review management . Essential hypertension 16507029 I10 He is c/w lisinopril but he ran out of amlodipine so will restart and adjust meds as needed at his next visit. [id number] Cara Tinsley PA-C Main Office [address] [place] [address] 01/17/2017 12:37:34 01/17/2017 14:17:04 Renal disorder due to type 2 diabetes mellitus 011080378 E11.22 Diabetes and diet review provided. TOtal time spent teaching and coord. care 45 minutes. Pt. was trained on insulin injection. ADvised to restart oral antidiabet ics and BP meds. Test glucose TID premeal as advised Return with glucose log in 2-3 weeks. Chronic ki dney disease stage 2 412073000 N18.2 Body mass index 25-29 - overweight 394647260 E66.3 Z68.25 Hypertensi ve renal disease 46986358 I12.9 Restart BP meds. Recheck microalbum in [id number] Cara Tinsley PA-C Main Office [address] [facility] [address] [place] [address] 01/31/2017 13:33:54 01/31/2017 14:33:58 Renal disorder due to type 2 diabetes mellitus 114265900 E11.22 Continue current meds. Test glucose TID. PT. made a lot of changes in lifestyle. Will f/u in 4-6 weeks with better glucose log. Chronic ki dney disease stage 2 061972607 N18.2 MIld microalbum inuria is due to uncontroll ed HTN and sugars. Essential hypertension 40921008 I10 Increase Lisinopril to 10 mg daily. Retest in 4 weeks. Body mass index 25-29 - overweight 596725573 E66.3 Z68.25 [id number] Cara Tinsley PA-C Main Office [address] [facility] [address] [place] [address] 05/21/2017 15:12:08 05/21/2017 16:27:58 Essential hypertension 43021241 I10 Refill Lisinopril 10 mg. referral to renal. Repeat labs.Cont current amlodipine regimen Renal diso rder due to type 2 diabetes mellitus 728016903 E11.22 A1c today 7.5% which is above target. Start Piogitazon e at 15 mg daily, cont glipizide 10 mg BID . Metformin 1000 mg once daily until BMP results return. F/u with PCP as scheduled. Chronic ki dney disease stage 2 257736309 N18.2 recheck labs , improve HTN control. Microalbuminuria 2203973 06 R80.9 Body mass index 25-29 - overweight 151801006 E66.3 Z68.25 Epidermoid cyst of skin 191264848 L72.0 asymptomat ic, no tx indicated at this time [id number] Jay De La Cruz MD Main Office [address] [facility] [address] [place] [address] 07/09/2017 16:29:04 07/09/2017 17:17:40 Adult health examination 503239090 Z00.00 He is UTD w/immuniza tions; we discussed colon cancer screening which he has never done but he agrees to stool cards. Hyperlipidemia 09292189 E78.5 not currently taking meds; we will check a level and then discuss restarting . Screening for malignant neoplasm of colon 410678154 Z12.11 Z12.12 he refuses colonoscop y but will do stool cards. Essential hypertension 01480458 I10 Not well controlled despite being c/w meds. We will double both his lisinopril and amlodipine and see him back in 1 month. [id number] Cara Tinsley PA-C Main Office [address] [facility] [address] [facility] [place] [address] 04/27/2018 15:52:38 04/27/2018 16:38:04 Renal disorder due to type 2 diabetes mellitus 418208988 E11.22 uncontroll ed diabetes due to noncomplia nce to meds and visit. Increase PIOglitazo ne to 45 mg daily and continue Glipizide 10 mg BID. Return with glucose testing TID premeal log in 6 weeks for repeat A1c. If no improvemen t , pt. agrees to start insulin or GLP-1 . Chronic ki dney disease stage 2 970724089 N18.2 recheck labs and microalbum in. Continue current BP meds. Improve diabetic control. Microalbuminuria 6261237 06 R80.9 Essential hypertension 35525095 I10 BP meds renewed. [id number] Cara Tinsley PA-C Main Office [address] [facility] [address] [facility] [place] [address] 07/24/2018 12:48:20 07/24/2018 13:51:08 Renal disorder due to type 2 diabetes mellitus 968945592 E11.22 GLucose control is improving. PT. started plant protein diet . AT this point compliance to meds is improved, but control is still above norm. Continue current meds. Add TRulicity at 0.75 mcg weekly. Injections were demonstrat ed with the demo. Pt. felecia return in 6 weeks. He will also look into use of CGM at . Chronic ki dney disease stage 2 784578487 N18.2 recheck labs and microalbum in. Continue current BP meds. Improve diabetic control. Body mass index 25-29 - overweight 047613029 E66.3 Z68.28 [id number] Blu Acuña MD Main Office [address] [facility] [address] [facility] [place] [address] 08/25/2018 15:17:53 08/25/2018 16:20:47 Renal disorder due to type 2 diabetes mellitus 934805532 E11.22 Pt. is not compliant to testing and did not fill Rx for Trulicity. Failed to notify office Rx did not go through to the pharmacy. Continue on oral meds w/o change.Dis cussed at length with the patient that he needs additional treatment with combined GLP-1 receptor agonist and basal insulin. Will send in script for Xultophy and when he gets the medication he will come back to the office and he will be given education on how to use the device.Felecia shaikh resend script for glucometer and test strips, and recommend that the patient test three times a day and keep a log and bring it to the next appointmen t in 1 month. Chronic ki dney disease stage 2 965398920 N18.2 recheck labs and microalbum in. Continue current BP meds. Improve diabetic control. [id number] Elida melo MD Main Office [address] [facility] [address] [facility] [place] [address] 10/09/2018 09:45:09 10/09/2018 10:53:21 Renal disorder due to type 2 diabetes mellitus 913644065 E11.22 Much improved diabetic control. IN fact, glucose readings have been somewhat low in the am and prelunch. At this point, will hold xultophy injections , continue oral antidiabet ics and retest again in 6 weeks. Chronic ki dney disease stage 2 578131186 N18.2 Repeat microalb. and renal functions. Systolic murmur 39724382 R01.1 schedule echocardio gram Hypoglycemia 214504123 E 16.2 D/c Xultrophy. Continue oral diabetes meds. F/u in October with PCP for BP f/u Essential hypertension 88917111 I10 Repeat labs today. D/c Lisinopril . Start Lisinopril HCTZ. Recheck in 6 weeks. [id number] Elida melo MD Main Office [address] [facility] [address] [facility] [place], [place] [address] 10/19/2018 15:36:30 10/19/2018 16:31:56 Renal disorder due to type 2 diabetes mellitus 157665367 E11.22 Much improved diabetic control. IN fact, glucose readings have been low . Lower Glipizide 10 mg to qd only. Continue Pioglitazo ne 45 mg and add Trulicity 0.75 mcg weekly injections Plan on either fully minimizing dose of Glipizide ( 2.3 mg ) or discontinu ing as Trulicity takes effect w/i 1-2 weeks. F/u is scheduled with PCP in October. I will see pt. in 6 weeks. Pt. should be cleared for new job as soon as all hypoglycem ia is resolved. Chronic ki dney disease stage 2 213774108 N18.2 Repeat microalb. and renal functions. Essential hypertension 55280255 I10 Repeat labs today. Test BP at . Continue current meds. BP is at goal at this point. [id number] Jay De La Cruz MD Main Office [address] [facility] [address] [facility] [place] [place] [address] 10/22/2018 13:49:40 10/22/2018 15:29:47 Adult health examination 850145075 Z00.00 He is UTD w/immuniza tions; we discussed colon cancer screening and he is due again in 2020. Screening for malignant neoplasm of colon 745906851 Z12.11 Essential hypertension 44878304 I10 Not well controlled despite being c/w meds. No changes at this time. Renal diso rder due to type 2 diabetes mellitus 701992525 E11.29 This has been improving since he has been followed by Cara and started on trulicity. We will work with him and Cara to get this under adequate control so he can drive for his job. Chronic ki dney disease stage 2 627360053 N18.2 followed by renal. [id number] Gonzalo Blanchard MD Main Office [address] [facility] [address] [facility] [place] [address] 11/24/2018 15:58:42 11/24/2018 16:39:27 Renal disorder due to type 2 diabetes mellitus 162085465 E11.22 Much improved diabetes with the addition of Trulicity. Will maximized the dose at this point to eliminate Glipizide . Will stop glipizide after starting on Trulicity 1.5 mg dose and continue Pioglitazo ne. 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 Advised not to skip or postpone regular meals. F/u 2 m. Chronic ki dney disease stage 2 807979385 N18.2 Repeat microalb. and renal functions. Essential hypertension 55037126 I10 Pt. will provide home BP records. Continue current meds. [id number] Blu Acuña MD Main Office [address] [facility] [address] [facility] [place] [address] 07/21/2019 13:34:30 07/21/2019 14:37:36 Renal disorder due to type 2 diabetes mellitus 833855952 E11.22 Much improved diabetes with the addition of Trulicity. Continue TRulicity , but will keep off pioglitazo ne. Continue diet and exercise. Repeat labs . I asked pt. to wait on renal until we etest BP and labs. F/u 6 weeks for BP Chronic ki dney disease stage 2 544051625 N18.2 Repeat microalb. and renal functions. Essential hypertension 31815652 I10 Restart BP meds and recheck in 6 weeks. Noncomplia nce with medication regimen 666929433 Z91.14 [id number] Jay De La Cruz MD Main Office [address] [facility] [address] [facility] [place] [address] 07/29/2019 09:19:17 07/29/2019 10:04:20 Essential hypertension 58400637 I10 Well-contr olled. Will continue current mgmt and recheck next week. [id number] Gonzalo Blanchard MD Main Office [address] [facility] [address] [facility] [address] 08/02/2019 09:04:39 08/02/2019 10:01:20 Essential hypertension 32304082 I10 Pt was initially elevated but on recheck it is < 140/90. He will stay on the present medication s and followup with nephrology . His home machine gets similar reading to the in office cuffs. Bp running normal at home, no changes for now. Lab today to recheck creatinine . Chronic ki dney disease stage 2 281356712 N18.2 With most recent creatinine he now has CKD stage 3, needs to see nephrology . [id number] Jay De La Cruz MD Main Office [address] [facility] [address] [facility] [place] [address] 11/25/2019 11:34:54 11/25/2019 15:32:26 Renal disorder due to type 2 diabetes mellitus 937607658 E11.29 Sugars may be running a little high again. We will make him another appointmen t with Cara. Chronic ki dney disease stage 2 174254493 N18.2 followed by renal. Abdominal pain 05742290 R10.9 The intermitte nt nature of his pain and the length as well along with the alternatin g constipati on points to IBS. He was instructed to stop the cipro since I feel that this isn't helping. He will restart the pantoprazo le and will only take the zofran if he develops N/V. We wll refer him to GI for further evaluation since this has been going on for so long. [id number] Blu Acuña MD Telehealt h [address] [facility] [address] [facility] [place] [address] 01/03/2020 08:48:20 01/03/2020 13:21:55 Retinopathy due to type 2 diabetes mellitus 487880562 E11.319 f/u with ophthalmol ogist Chronic ki dney disease stage 3 456466151 N18.3 f/u with renal. Essential hypertension 04325508 I10 Restart BP meds and recheck in 6 weeks. Renal diso rder due to type 2 diabetes mellitus 958649271 E11.22 Previously controlled diabetes now uncontroll ed due to noncomplia nce to meds, diet and exercise. Pt. advised to inject trulicity 1.5 mg weekly . His is going to be away for the summer , but his daughter who is a nurse will be arranged to administer shots. Repeat A1c in couple of weeks. F/u 6-7 weeks. CGM will be uploaded now and also again prior to visit. Pt. is advised to lower total calories and restart exercise activity by walking daily at least 30minutes. [id number] Ruben Haddad MD Main Office [address] [place] [address] 08/23/2020 10:32:13 08/23/2020 12:35:35 Adult health examination 019752874 Z00.00 Patient was counseled on healthy diet, exercise and nutrition due to Body mass index is 26.9 kg/m . PSADate: 07/27/19Re sult: 1.3Shared decision discussed patient opted to have repeat PSA. Last Colonoscop y:Date: 07/18/2020 Result: Stool entire bowel has repeat scheduled January 06 2021. Vaccines:T dAP: due patient declined risk discussed, he noted he would get in [address]: due, Patient advised to get at [facility].PCV13: due patient declined risk discussed, he noted he would get in 2 months. See detail below per CDC.Per CDC, Give 1 dose of PCV13 (bc immunocomp romised ckd) at least 1 year after previous PPSV23 (given on 06/10/15) dose. Then give a second dose of PPSV23 at least 8 weeks after PCV13 and at least 5 years after the first PPSV23 dose. A third and final dose of PPSV23 is not indicated until age 65 years and at least 5 years since the prior dose of PPSV23.PPS V23: 06/10/15Inf luenza:due patient declined risk discussed, he noted he would get in 2 months. Routine labs ordered today today, patient decline STI workup Eye - last seen 08/20/20 is following up has multiple opthamolog y condition including corneal transplant on Left.denta l - > not following regularly, I counseled importance to follow.ski n: referral provided todaypodia try: referral provided.M edication reconciled and compliance discussed. Essential hypertension 78521078 I10 Patient had second reading 140/80 does not want to increase his medication .Notes that he check BP regularly and it has been below 140/90, I advised him to keep checking daily and bring log in 2 months.HTN emergency risk discussed. Chronic ki dney disease stage 3 523445533 N18.30 Will repeat CMP. Anemia of chronic disease 792040019 D63.8 Will check CBC Hyperlipidemia 67770728 E78.5 Will check fasting lipid recalculat e ASCVD and consider starting on next visit. Patient has medication compliance issues thus will slowly introduce in hopes to obtain compliance . Microalbuminuria 3210314 06 R80.9 Will recheck patient on HECTOR Renal diso rder due to type 2 diabetes mellitus 227682754 E11.21 He is following VM for DM, Will check A1c as about 3 months markIs injecting Trulicity but ran out of pioglitazo ne thus will refill today.Has maeve on R shoulder he is to follow VM in 1 month. Will also refer to podiatry for feet checkHe is closely following with ophthalmol ogy Fatigue 75350852 R53.83 Immunization refused 275 016220 Z28.21 Patient due for multiple vaccines a long time was spent counseling , he declined in fear on needle and promised to me he would reconsider in 2 months For pneumonia vaccine, See detail below per CDC.Per CDC, Give 1 dose of PCV13 (bc immunocomp romised ckd) at least 1 year after previous PPSV23 (given on 06/10/15) dose. Then give a second dose of PPSV23 at least 8 weeks after PCV13 and at least 5 years after the first PPSV23 dose. 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 Screening for malignant neoplasm of prostate 361215490 Z12.5 Shared decision made with patient to get PSA. [id number] Elida melo MD Main Office [address] [place] [address] 05/10/2021 13:54:34 05/10/2021 14:45:35 Pre-surgery evaluation 520064658 Z01.818 Patient is at low risk for cardiopulm onary complicati ons with planned procedure based on comorbidit ies, good exertional tolerance and overall procedure risk. Patient advised to avoid aspirin and NSAIDS for 7 days prior.May proceed to scheduled surgery as planned. Kahn 0.3% Chronic ki dney disease stage 3B 561361199 N18.32 recheck bmp above, cont f/u c nephrology Hemorrhage of left vitreous body 7948431088 08874 H43.12 Hypertensi ve renal disease 89494456 I12.9 bp stable, cont meds as dir Renal diso rder due to type 2 diabetes mellitus 158603962 E11.21 A1c stable at 6.6 down from 7.4 cont meds as dir, cont f/u c VM Anemia of chronic disease 849644496 D63.8 recheck cbc above [id number] Elida melo MD Main Office 36[address] [facility] [address] [facility] [address] 06/01/2021 10:24:27 06/01/2021 10:56:59 Renal disorder due to type 2 diabetes mellitus 425446985 E11.22 Increase Trulicity to 3 mg weekly. Hold pioglitazo ne until next visit. F/u 3 m with repeat A1c. Influenza vaccination declined 101645778 Z28.21 Chronic ki dney disease stage 3B 966910531 N18.32 Needs nephrology f/u. [id number] Jay De La Cruz MD Main Office [address] [place] [address] 08/29/2021 12:49:59 08/29/2021 13:46:57 Adult health examination 741759505 Z00.00 He is fully vaccinated against COVID and flu and we will update his tetanus today. He had a colonoscop y done in 2020 but we did not receive the bx results so we are not sure when he is due again. Will contact for the results. Administra tion of viral vaccine 24012016 Z23 Anemia of chronic disease 974256046 D63.8 Chronic ki dney disease stage 3B 794335688 N18.32 Important to control his diabetes and blood pressure. Renal diso rder due to type 2 diabetes mellitus 395619916 E11.22 I will order labs and he has a f/u with Cara in 2 days. Hypertensi ve renal disease 32844936 I12.9 Will change his lisinopril /HCTZ to get better control and see him back in a few months. Vitreous hemorrhage 3134 1008 H43.11 Decreased peripheral vision as a result. [id number] Jay De La Cruz MD Main Office [address] [facility] [address] [facility] [place] [address] 08/31/2021 09:51:13 08/31/2021 10:44:37 Renal disorder due to type 2 diabetes mellitus 132032617 E11.22 Advancing chronic kidney disease, stg 4. Pt. is advised to see nephrologi st as soon as possible to address. Continue BP meds, acei. Check BP daily. Eliminate sodium , lower protein and increase hydration. F/u for diabetes in 4 m. Continue trulicity 3 mg weekly. Chronic ki dney disease stage 4 [address]8583187 N18.[address], continue acei. [id number] Ruben Haddad MD Main Office [address] [facility] [address] [facility] [place] [address] 11/14/2021 10:37:44 11/14/2021 11:16:48 Renal disorder due to type 2 diabetes mellitus 607032419 E11.22 Stg 3B chronic renal disease followed by renal. Diabetic control and HTN are at goal. Pt .is not on renally cleared meds for his diabetes. He will continue diet and exercise and trulicity 3 mg. F/u 3 m. 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 Polanco. [id number] Ruben Haddad MD Telehealt h 3640 [facility] [address] [place] [address] 05/20/2022 09:06:42 05/20/2022 15:40:10 Retinopathy due to type 2 diabetes mellitus 722108417 E11.319 f/u with ophthalmol ogist Renal diso rder due to type 2 diabetes mellitus 656480962 E11.22 Stg 3B -4 chronic renal disease followed by Dr. Polanco. Unknown diab control due to lack of current labs. PT. is advised to have labs done and restart glucose monitoring via Maeve 3 CGM. Rx sent to pharmacy for meds and Maeve sensors. F/u 3 m if A1c is at goal. Chronic ki dney disease stage 3B 214527642 N18.32 F/u as scheduled with Dr. Polanco. Anemia of chronic disease 098659450 D63.8 f/u renal [id number] Ruben Haddad MD Main Office [address] [address] 05/06/2023 14:58:17 05/06/2023 16:09:59 Renal disorder due to type 2 diabetes mellitus 034024104 E11.22 Stg 3B -4 chronic renal disease followed by Dr. Polanco. Pt. is advised to schedule renal f/u and have repeat lab tests and urine done. Continue Trulicity 3 mg weekly. Recommend to switch to Maeve 3 version of CGM. Consider Jardiance 10 mg if GFR is not under 35. Chronic ki dney disease stage 3B 097772294 N18.32 F/u as scheduled with Dr. Polanco. Influenza vaccination declined 649059037 Z28.21 Hypertensi ve renal disease 54279609 I12.9 Continue BP meds. Recheck microalbum in, retest magnesium level. Primary er ectile dysfunction 545756700 N52.9 [id number] Gonzalo Blanchard MD Main Office [address] [address] 09/27/2023 10:10:07 09/27/2023 11:32:17 Dementia 01914138 F03.90 Will refer for neuropsych testing and potentiall y neurology depending on results of imaging and labs. Required work up for referral to Memory Disorder Program.1. Imaging: Provider leave the desired imaging order, and delete the other (MRI or CT)2. Labs3. Perform 6CIT or MMSE Venereal d isease screening 816824178 Z11.3 Z72.89 F03.90 Hypertensi ve renal disease 17471812 I12.9 Hypotensio n is a possible contributo r to falls. Will reduce current BP meds by 1/2. Renal diso rder due to type 2 diabetes mellitus 456383961 E11.[address] Polanco and has appt scheduled on 10/06. Chronic ki dney disease stage 3B 120363721 N18.32 Will check routine CKD labs. Mild memor y disturbance 245042960 R41.3 MMSE done in office today , but falls, diminished reflexes and mood issues are concerning for possible encephalop athy. Will screen for common metabolic etiologies as well as structural disease/ol d CVA particular ly in the posterior fossa. Testostero ne level below reference range 438587847 R89.1 Will reassess and check MRI to evaluate for possible evidence of pituitary disease. Parasomnia 13248864 G47. 50 was able to show me the movements occurring while her sleeps. Not sure of significan ce and whether it is related to an early dementing/ encephalop athic process. [id number] Gonzalo Blanchard MD Telehealt h [address]40 [facility] [address] [facility] [place] [address] 10/10/2023 10:16:44 10/10/2023 16:16:57 Small vessel cerebrovascular disease 780947277 I67.9 After much discussion and explanatio n of benefit to statin therapy pt agrees to initiate statin therapy for CVD risk reduction based on current risk of 18%. Mild memor y disturbance 023141851 R41.3 Working on memory disorders referral at [facility]. If unable to accommodat e may need neuropsysc h eval with Dr. Prescott. Hyperparathyroidism 6699 9008 E21.3 Will request recent renal note and refer to endo to rule out secondary hyperparat hyrroid process. Uncontroll ed type 2 diabetes mellitus 518518016 E11.65 Needs f/u with VM to adjust regimen accordingl y. [id number] Jay De La Cruz MD Main Office [address] [facility] [address] [place] [place] [address] 01/01/2024 09:31:33 01/01/2024 10:55:54 Adult health examination 951027794 Z00.00 He is fully vaccinated against COVID and flu and we will update his tetanus today. He had a colonoscop y done in [address] Arambula and is due again in 2025. Chronic ki dney disease stage 4 168064932 N18.4 Important to keep diabetes and HTN under good control. Hypertensi ve renal disease 43886595 I12.9 Running high today; followed by renal. He feels that it is normal when he checks at home. Hyperlipidemia 49404350 E78.5 Currently taking atorvastat in and LDL was 103. Hyperparathyroidism 6699 9008 E21.3 Renal diso rder due to type 2 diabetes mellitus 873019990 E11.22 We discussed adjusting his diabetes meds but he would like to work on lifestyle changes to see if he can get this under better control on his own. He feels that he has a lot of room for improvemen t. Nocturia 707702989 R35.1 Administra tion of pneumococcal vaccine 46306146 Z23 He was advised to get this at his pharmacy. Sleep disorder 09915938 G47.9 Night terrors and abnormal movements while sleeping. Has hit his while sleeping and fallen out of bed. 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 Imaging: MRI done2. Labs3. Perform 6CIT or MMSEThe w/u was complete and was essentiall y normal . I gave him a printout of the referral and his will call to be put on a cancellati on and to monitor the appointmen t. Venereal d isease screening 538682761 Z11.3 Z72.89 F03.90 Nocturia 820816871 R35.1 He and his have concern about a missed malignancy since this happened to her. He is UTD with his colon cancer screening and is not having any GI symptoms. [id number] Jay De La Cruz MD Main Office [address] [facility] [address] [place] [address] 04/20/2024 13:46:33 04/20/2024 14:57:43 Major depressive disorder 760373014 F32.0 Will start a low-dose SSRI and see him back in 4 weeks. Intermitte nt confusion 928838041 R41.0 This may represent the start of dementia which is waxing and waning. He is waiting for an appointmen t with neuropsych at [facility] but the meantime we will refer him to neurology for further evaluation . [id number] Jay De La Cruz MD Main Office [address] [facility] [address] [place] [address] 05/26/2024 13:42:58 05/26/2024 14:36:02 Major depressive disorder 923692586 F32.0 Continue with current mgmt since he has some mild improvemen t. He has a neuro appointmen t next month and I will see him again in 2 months. We will adjust his meds if needed at that time. Renal diso rder due to type 2 diabetes mellitus 633418434 E11.22 He is taking trulicity and is followed by Cara. He has an appointmen t with her next month. Hypertensi ve renal disease 97333482 I12.9 Good control; continue current mgmt. Chronic ki dney disease stage 4 453806430 N18.4 Important to keep diabetes and HTN under good control. [id number] [facility] [address] [facility] [address] [facility] [place] [address] 06/14/2024 13:41:23 06/14/2024 14:42:00 Renal disorder due to type 2 diabetes mellitus 734030338 E11.22 Stg 4 chronic renal disease followed by Dr. Polanco. Uncontroll ed diabetes with A1c trending up for the last 4 weeks. Recom to increase fluids. Begin basal insulin toujeo at 20 u daily and Humalog /lispro 8 u before each main meal and trulicity 3 mg weekly. Continue using Dexcom . F/u in 4 weeks. Chronic ki dney disease stage 4 [address]24591310 N18.[address], continue acei. [id number] Gonzalo Blanchard MD Main Office [address] [facility] [address] [place] [address] 06/28/2024 11:30:09 06/28/2024 12:31:52 Renal disorder due to type 2 diabetes mellitus 155587361 E11.22 Stg 4 chronic renal disease followed by Dr. Polanco. Uncontroll ed diabetes with A1c above target. Pt. was started on insulin injections and is doing better. He can not administer premeal injections to himself , so his is helping with it currently. I would advised to change Trulicity to more effective incretin. to help post meal glucose , so pt would not need premeal injections . We will start Mounjaro at 2.5 mg weekly for 4 weeks , then 5 mg weekly to replace TRulicity 3 mg dose. Lower Toujeo to 15 u daily and fiasp to 5 u before meals. F/u 6 weeks. Chronic ki dney disease stage 4 140028535 N18.4 f/u with renal. continue jardiance 10 mg. [id number] Jay De La Cruz MD Main Office [address] [address] [place] [address] 07/26/2024 10:53:53 07/26/2024 12:01:02 Retinopathy due to type 2 diabetes mellitus 994090975 E11.319 He has not been seen by ophthalmol marquise in more than 2 years. He was encouraged to schedule his own appointmen t. Hypertensi ve renal disease 83731027 I12.9 BP is running high today. He hasn't taken his meds. He will follow his BP at home and call if it continues to run with a systolic >140 consistent ly. Transient cerebral ischemia 806175630 G45.9 Administra tion of pneumococcal vaccine 69711911 Z23 He was advised to get this at his pharmacy. Mild dementia 7957001093 80420 F03.A0 He is followed by Dr Merino, neurology and is currently taking memantine. [id number] Gonzalo Blanchard MD Main Office [address] [address] [place] [address] 08/09/2024 11:11:00 08/09/2024 11:13:49 [id number] Jay De La Cruz MD Main Office [address] [place] [address] [place] [address] 09/21/2024 11:59:39 09/21/2024 12:02:07 [id number] Jay De La Cruz MD Main Office [address] [place] [address] [place] [address] 10/06/2024 14:44:35 10/06/2024 16:21:53 Renal disorder due to type 2 diabetes mellitus 672322192 E11.22 Stable type II diabetes with Stg 4 chronic renal disease followed by Dr. Polanco. A1c is done to 6% with no hypoglycem ia. CGM upload from was reviewed and showed 87% of readings in range. I also reviewed last 3-7 day CGM and they are stable with no low sugars as well. Pt.was switched from Trulicity to Mounjaro, but could not afford the cost of medicine. jardiance 10 mg was added by renal.WE will continue current course and f/u in 3-4 m. Chronic ki dney disease stage 4 662124048 N18.4 f/u with renal. continue jardiance 10 mg. Proliferat [place] retinopathy of left eye due to diabetes mellitus 388000132 E11.3592 f/u with ophthalmol ogy and retina specilaist . Anemia of chronic disease 894114440 D63.8 f/u renal [id number] Jay De La Cruz MD Main Office [address] [place] [address] 11/02/2024 09:55:34 11/02/2024 10:00:15 [id number] Jay De La Cruz MD Main Office [address] [place] [address] 12/15/2024 08:47:53 12/15/2024 08:48:11 [id number] Jay De La Cruz MD Main Office [address] [place] [address] 01/04/2025 10:22:16 01/04/2025 11:19:24 Renal disorder due to type 2 diabetes mellitus 008963712 E11.22 Stable type II diabetes with Stg 4 chronic renal disease followed by Dr. Polanco. Last visit was in June. Pt was encouraged to make f/u corina with him due this month.A1c is down to 5.9%. CGM upload 1 week ago with very stable glucose control with no spikes. No hypoglycem ia.D/c pre meal insulin , continue basal bolus at 20 u daily, mounjaro 5 mg weekly and Jardiance 10 mg. THis was related to pt's over the phone. F/u 3 m. Chronic ki dney disease stage 4 559932780 N18.4 f/u with renal. continue jardiance 10 mg. Diarrhea 97183332 R19.7 24830929 Pt reports diarrhea more than once per day. Unsure how long , but thinks it's been there for a year. Unclear if history is accurate. Recommend to begin with adding Benefiber and prn Imodium. Consider earlier GI referral PT is due for repeat colonoscop y in 2025. Hyperlipidemia 69862998 E78.5 repeat lipids, continue statin and low fat diet. [id number] Gonzalo Blanchard MD Main Office [address] [facility] [address] [place] [address] 01/27/2025 10:08:24 01/27/2025 10:10:02 [id number] Gonzalo Blanchard MD Main Office [address] [facility] [address] [place] [address] 03/10/2025 13:30:50 03/10/2025 13:34:04 [id number] Gonzalo Blanchard MD Main Office [address] [facility] [address] [place] [address] 04/21/2025 13:12:09 04/21/2025 13:14:36 Health Concerns Section Related Observation LastModified by Organization Detai ls LastModified Time None Recorded Concern Status LastModified by Organization Details LastModified Time None Recorded Advance Directives Directive N: Payers Insurance Date Sequence Insurance Name Policy Number Policy Mosher Covered Member ID Mosher Member ID Guarantor Name 12/03/2024 2 [place]: [employer] Nino Rupa Eduard [id number] Nino Chapa 03/22/2025 2 [place] [facility] Nino Rupa Eduard [id number] Nino Chapa 04/20/2025 1 [facility] (MEDICARE REPLACEMENT /ADVANTAGE - HMO) [id number] Nino Chapa [id number] Nino Chapa 03/02/2025 1 [employer] (INDEMNITY) [id number] Nino Chapa [id number] Nino Chapa 11/19/2022 1 [employer] (PPO) [id number] Nino Chapa [id number] Nino Chapa 12/16/2024 2 [facility] (HMO) [id number] Niyah Chapa [id number] Nino Chapa 11/19/2022 1 [facility] (HMO) Nino Chapa [id number] 2 Nino Chapa 12/16/2024 2 [place] Nino Chapa [id number] Nino Chapa 12/16/2024 1 [facility] MEDICAID ESSENTIAL (MEDICAID HMO) [id number] Nino Chapa [id number] Nino Chapa 12/16/2024 1 [employer] [id number] Nino Chapa [id number] Nino Chapa 11/17/2024 2 [place] [facility] Nino Chapa [id number] Nino Chapa Notes Date Note Type Note Provider Name and Address Organization Details Recorded Time 01/04/2025 text/html Diabetes F/URepo rted by PatientHPIFor context, patient reportsside effects from medicationsbut reportschecking feet regularlyandnot missing doses of medications(diarrhea ? up to twice daily). For associated symptoms, patient reportsweight gain (___ lbs)andweight loss (2 lbs)but reportsno dizziness,no sweats,no headaches,no confusion,no increased thirst,no increased appetite,no increased urination,no blurred vision,no numbness of feet, andno calluses on feet. For review finger sticks, (pt. uses cgm with dexcom .).A1c is 5.9%. Pt. lost 2 additional lbs , 9 lbs last visit.Meds: Toujeo 20 u daily, fiasp 8u BID before meals, Jardiance 10 mg. Mounjaro 5 mg weekly.CGM uploaded on 12/15 showed 86 % of readings in range w/o hypoglycemia.Prolifer ative diabetic retinopathy followed by retina and ophthalmology.Pt. denies foot pain or numbness. Does not see spring intern.ROS as noted in the HPI 64 year old male with h/o dementia, unaccompanied for diabetic f/u. Cara Tinsley PA-C [address] [address], [place], [address], [facility] 01/04/2025 13:13:40
--- OUTSIDE RECORDS SUMMARY | 2025-05-09 17:37 | XMS_ITS | Encounter Summary ---
Author Organization [facility], Address [address] [place] [address] Phone Care Team Providers Care Engine Turner Name Role Phone Bonita Tinsley Primary Care Provider [phone] Encounter Details Date Type Department Care Team ([facility] st Contact Info) Description 10/01/2023 Documentation Only [facility], [address] [place] [address] Sheri Shafer [address] [place] [address] Social History Tobacco Use Types [...] on filedocumented in this encounter Care Teams Engine Turner Relationship Specialty Start Date End Date Bonita Tinsley PA [address] [facility] [address] [place], [place] PCP - General Physician Brine Well Operator 11/15/21 documented as of this encounter
--- OUTSIDE RECORDS SUMMARY | 2025-05-09 17:37 | XMS_ITS | Encounter Summary ---
Author Organization [facility], Address [address] [place] [address] Phone Care Team Providers Care Identity Access Management Architect Name Role Phone Bonita Tinsley Primary Care Provider [phone] Encounter Details Date Type Department Care Team (Late st Contact Info) Description 05/07/2023 Documentation Only [facility], - Viridiana Pereira [address] [facility] [place] [address] [place] [phone] Heri Kaiser MD [address] [place] [address] [facility] [place] [phone] Social History Tobacco Use Types Packs/Day Years [...] on filedocumented in this encounter Care Teams Identity Access Management Architect Relationship Specialty Start Date End Date Bonita Tinsley PA [address] PCP - General Physician Brand Director 11/15/21 documented as of this encounter
--- OUTSIDE RECORDS SUMMARY | 2025-05-09 17:37 | XMS_ITS | Encounter Summary ---
Author Organization [facility], Address [address] [place] [address] Phone Care Team Providers Care C Software Engineer Name Role Phone Bonita Tinsley Primary Care Provider [phone] Encounter Details Date Type Department Care Team (Late st Contact Info) Description 09/05/2021 Documentation Only [facility], [address] [place] [phone] Jay De La Cruz MD [address] [phone] Social History Tobacco Use Types Packs/Day Years [...] on filedocumented in this encounter Care Teams C Software Engineer Relationship Specialty Start Date End Date Bonita Tinsley PA [address] [facility] [address] [place], [place] PCP - General Physician Real Time Trader 11/15/21 documented as of this encounter
--- OUTSIDE RECORDS SUMMARY | 2025-05-09 17:37 | XMS_ITS | Clinical Summary ---
Author Organization [facility], Address [address] [place] [address] [place] [address] Phone Care Team Providers Care Balancing Machine Set Up Worker Name Role Phone Bonita Tinsley Primary Care Provider + [phone] Allergies No known active allergies Medications lisinopril-hydr oCHLOROthiazide (PRINZIDE,ZESTO RETIC) 20-25 MG per tablet Take 1 tablet by mouth 1 (one) time each day 9 Active TRULICITY 1.5 MG/0.5ML solution pen-injector Inject 0.5 mL under the skin per week 9 Active Continuous Blood Gluc Sensor (FREESTYLE PRESTON 14 DAY SENSOR) [facility] 9 Active atorvastatin (LIPITOR) 10 MG tablet Take 10 mg by mouth 1 (one) time each day 4 Active clonazePAM (KlonoPIN) 0.5 MG tablet Take 0.5 mg by mouth every night Active clopidogrel (PLAVIX) 75 MG tablet Take 1 tablet every day by oral route for 90 days. Active Toujeo SoloStar 300 UNIT/ML solution pen-injector INJECT 20 UNITS EVERY DAY BY SUBCUTANEOUS ROUTE FOR 90 DAYS. Active Insulin Lispro, 1 Unit Dial, 100 UNIT/ML solution pen-injector Inject 8 units 3 times a day by subcutaneous route for 30 days. 5 Active lisinopril 20 MG tablet Take 20 mg by mouth 1 (one) time each day Active Mounjaro 5 MG/0.5ML solution auto-injector INJECT 5 MG UNDER THE SKIN EVERY WEEK Active Empagliflozin (Jardiance) 10 MG tablet Take 10 mg by mouth 1 (one) time each day with breakfast 90 tablet 3 5 01/11/20 26 Active calcitriol (ROCALTROL) 0.5 MCG capsule TAKE 1 CAPSULE (0.5 MCG TOTAL) BY MOUTH 1 (ONE) TIME EACH DAY 90 capsule 3 5 Active Active Problems Problem Noted Date Diagnosed Date Chronic kidney disease, stage 4 (severe) 024 Hyperuricemia 11/14/2021 Stage 3b chronic kidney disease 10/02/2021 Renal osteodystrophy 10/02/2021 Chronic kidney disease stage 2 01/25/2014 Essential hypertension 01/25/2014 Renal disorder due to type 2 diabetes mellitus 0 01/25/2014 Resolved Problems Problem Noted Date Diagnosed Date Resolved Date Acute nontraumatic kidney injury 08/19/2019 10/02/2021 Chronic kidney disease due to hypertension 08/19/2019 10/02/2021 Anemia of chronic disease 07/31/2019 Microalbuminuria 05/21/2017 10/02/2021 Immunizations Immunization Administration Dates Next Due DT 04/04/1998 Hep A, Unspecified 03/01/2008 Hepatitis A 04/28/2017 Influenza, Unspecified 07/04/2011,05/09/2009,06/2007,05/17/2005 MMR 03/01/2008 Moderna SARS-COV-2 04/07/2021,03/07/2021, 021 Pneumococcal Polysaccharide 06/10/2015 Td 03/26/2003 Td, Not Adsorbed 03/26/2003 Tdap 08/29/2021,03/01/2008 Typhoid, Unspecified 04/28/2017 Social History Tobacco Use Types Packs/Day Years Used Date Smoking Tobacco: Never Alcohol Use Standard Drinks/Week Comments No 0 (1 standard drink = 0.6 oz pur e alcohol) Sex and Gender Information Value Date Recorded Sex Assigned at Not on file Legal Sex Male 4:37 PM EST Gender Identity Not on file Sexual Orientation Not on file Last Filed Vital Signs Vital Sign Reading Time Taken Comments Blood Pressure 110/65 09/10/2019 10:02 AM EST Pulse - - Temperature - - Respiratory Rate - - Oxygen Saturation - - Inhaled Oxygen Concentration - - Weight 74.7 kg (164 lb 9.6 oz) 09/10/2019 10:02 AM EST Height 172.7 cm (5' 8 ) 04/02/2019 12:00 PM EDT Body Mass Index 25.03 04/02/2019 12:00 PM EDT Plan of Treatment Health Maintenance Due Date Last Done Comments Colorectal Cancer Screening: Annual FOBT 2007 Colorectal Cancer Screening: Colonoscopy 2007 Colorectal Cancer Screening: Sigmoidoscopy 2007 Pneumococcal Vaccine: 50+ Years (2 of 2 - PCV) 06/10/2016 06/10/2015 Diabetes: Pedal Pulse Checked 08/19/2019 Diabetes: Sensory Foot Exam 08/19/2019 Diabetes: Visual Foot Exam 08/19/2019 Diabetes: Ophthalmology Exam 11/06/2021 11/06/2020 Diabetes: Hemoglobin A1C 09/12/2024 06/12/2024, 06/05 Influenza Vaccine (#1) 2025 1, 05/09/2009, 07/14/2007, Additional history exists Pneumococcal Vaccine: Peds (0 to 5 Years) and At-Risk Patients (6 to 49 Years) Discontinued 06/10/2015 Hepatitis B Vaccine Aged Out No longe r eligible based on patient's age to complete this topic Procedures Procedure Name Priority Date/Time Associated Diagnosis Comments HEMOGLOBIN A1C Routine 06/12/2024 10:18 AM EST Chronic kidney disease, stage 4 (severe) (HCC) Renal disorder due to type 2 diabetes mellitus <Other diabetic kidney complication> (HCC) from Last 3 Months or Most Recently Relevant to Health Maintenance Results * (ABNORMAL) Hemoglobin A1c (06/12/2024 10:18 AM EST) Hemoglobin A1C 8.0(H) 4.8 - 5.6 % [facility] Comment: Prediabetes: 5.7 - 6.4 Diabetes: >6.4 Glycemic control for adults with diabetes: <7.0 Blood specimen (specimen) Venous blood / Unknown 06/12/2024 10:18 AM EST 06/12/2024 Heri Kaiser MD LAB BLOOD ORDERABLES Final Resul t [facility] [address] [place] [address] from Last 3 Months or Most Recently Relevant to Health Maintenance Insurance Care Teams Balancing Machine Set Up Worker Relationship Specialty Start Date End Date Bonita Tinsley PA [address] PCP - General Physician Test Engineer Nuclear Equipment 11/15/21
--- OUTSIDE RECORDS SUMMARY | 2025-05-09 17:37 | XMS_ITS | Encounter Summary ---
Author Organization [facility], Address [address] [place] [address] Phone Care Team Providers Care Tactical Air Control Party Name Role Phone Bonita Tinsley Primary Care Provider [phone] [phone] Encounter Details Date Type Department Care Team (Late st Contact Info) Description 09/05/2021 Documentation Only [facility], [address] [phone] Jay De La Cruz MD [address] [address] Social History Tobacco Use Types Packs/Day Years [...] on filedocumented in this encounter Care Teams Tactical Air Control Party Relationship Specialty Start Date End Date Bonita Tinsley PA [address] [facility] [address] [place], [place] PCP - General Physician Casting Trucker 11/15/21 documented as of this encounter
--- OUTSIDE RECORDS SUMMARY | 2025-05-09 17:37 | XMS_ITS | Encounter Summary ---
Author Organization [facility], Address [address] [place] [address] Phone Care Team Providers Care Silver Chaser Name Role Phone Bonita Tinsley Primary Care Provider [phone]- [phone] Encounter Details Date Type Department Care Team (Late st Contact Info) Description 05/07/2023 Documentation Only [facility], - Viridiana Pereira [address] [facility] [address] [place] [phone] Heri Kaiser MD [address] [place] [address] Dr[address] [facility] [place] [phone] Social History Tobacco Use Types Packs/Day Years [...] on filedocumented in this encounter Care Teams Silver Chaser Relationship Specialty Start Date End Date Bonita Tinsley PA [address] PCP - General Physician Insurance Analyst 11/15/21 documented as of this encounter
--- OUTSIDE RECORDS SUMMARY | 2025-05-09 17:37 | XMS_ITS | Encounter Summary ---
Author Organization [facility], Address [address] [place] [address] Phone Care Team Providers Care Brake Assembler Name Role Phone Bonita Tinsley Primary Care Provider [phone]- [phone] Encounter Details Date Type Department Care Team (Late st Contact Info) Description 10/03/2023 Documentation Only [facility], [address] [place] [address] Sheri Shafer [address] [place] [address] Social History Tobacco Use Types [...] on filedocumented in this encounter Care Teams Brake Assembler Relationship Specialty Start Date End Date Bonita Tinsley PA [address] [facility] [address] [place], [place] PCP - General Physician Deck Scaler 11/15/21 documented as of this encounter
== END 2025-05-09 15:37 | disposition home or self-care (01) ==
LOC: HO.HSM 15:14
PROVIDERS: PCP Internal Medicine; Referring Provider Internal Medicine; Visit Provider Psychiatry & Neurology Neurology
DX: G30.1 Alzheimer's disease with late onset (principal); F02.B0 Dementia in other diseases classified elsewhere, moderate, without behavioral disturbance, psychotic disturbance, mood disturbance, and anxiety; G47.52 REM sleep behavior disorder
CPT/HCPCS: 99214